=== PATIENT | male | born 1955 | race African-American/Black ===

== ENCOUNTER 2024-02-08 14:04 | Emergency (ER) | payer OTHER ==
[~2024-02-08] VITALS: Ht 180.3 cm; Wt 127.0 kg
[~2024-02-08 14:04] MED LIST: ALBUTEROL; AMLO5TAB88; ASPI-1406; BENA-8; CARI350T28; HYDROCHLOROT; IBUP-2030; INSLAN; INSU10VI4; METF-416; MV,C1TAB15; POTA-185; SIMV-43; TIOT18CA3
[2024-02-08 14:25] VITALS: O2SAT 98
[2024-02-08] MEDS ORDERED: LIDO700A30 TP (17:00)
[2024-02-08 17:16] VITALS: BP 180/112; PULSE 86; RESP 18; TEMP 37.05852; O2SAT 98
== END 2024-02-08 17:22 | disposition home or self-care (01) ==
LOC: ER 14:18
DX: S20.219A Contusion of unspecified front wall of thorax, initial encounter (principal); E11.9 Type 2 diabetes mellitus without complications; I10 Essential (primary) hypertension; J44.9 Chronic obstructive pulmonary disease, unspecified; Z79.899 Other long term (current) drug therapy; W01.0XXA Fall on same level from slipping, tripping and stumbling without subsequent striking against object, initial encounter; Y93.89 Activity, other specified; Y92.89 Other specified places as the place of occurrence of the external cause; Y99.8 Other external cause status
CPT/HCPCS: 71101; 99283